=== PATIENT | female | born 1965 | race Caucasian/White ===

== ENCOUNTER 2017-03-06 17:38 | Emergency (ER) | payer OTHER ==
--- NOTE | ~2017-03-06 | US84 ---
[id number] [address] [id number] E MR#: [id number] #: [id number] NAME: ZENIA SOLOMON : 1965 SEX: F STUDY DATE/TIME: 03/06/2017 18:41 UNIT: SED ROOM: STUDY DESCRIPTION: US LE Veins Complete Tito Stdy Attending Physician: Aldo Abdi Ordering Physician: Aldo Abdi Primary Care Physician: Victor Manuel Irwin Aprn MEDICAL IMAGING REPORT This report is preliminary unless electronic signature is present. EXAM Bilateral lower extremity venous ultrasound HISTORY Lower extremity swelling for 1 week. FINDINGS Ultrasound examination of the bilateral lower extremity veins was performed from the groin to the calf with neumann-scale, color Doppler and spectral Doppler evaluation. Exam sensitivity is limited by large patient size. No DVT or SVT is identified. IMPRESSION 1. No DVT or SVT is identified. 2. Exam sensitivity is limited by patient body habitus. Dictated by... Ricco Choudhary M.D. THIS IS AN ELECTRONICALLY VERIFIED REPORT Ricco Choudhary M.D. at 03/06/2017 10:47 PM ELLIOTT/dai TD: 03/06/2017 21:18 JOB #: [id number] MEDICAL IMAGING REPORT Page 1 of 1
[~2017-03-06 17:38] MED LIST: ALBUTEROL17 GM; CENTRUM; CHLORTHALIDONE25 MG; COZAAR; DIFLUCAN; FLEXERIL; LORATADINE5 MG/5 M2; PREDNISONE10 MG/DOSE PO; PROVENTIL0.83 MG/ML; SPIRIVA RESPIMAT4 G1; SYNTHROID0.2 MG; VERAMYST10 GM
[2017-03-06 18:19] LABS: BASOPHIL# 0.1 X10e3 (0-0.3); BASOPHIL% 0.7 % (0-2.5); EOSINOPHIL# 0.3 X10e3 (0-0.7); EOSINOPHIL% 2.7 % (0.0-7.0); HEMATOCRIT 34.3 % (35.0-45.0); HEMOGLOBIN 11.4 gm/dL (12.0-16.0); LYMPHOCYTE# 2.3 X10e3 (1.0-3.5); LYMPHOCYTE% 23.3 % (17.0-45.0); MEAN CELL VOLUME 79.5 FL (83-96); MEAN CORPUSCULAR HEMOGLOBIN 26.6 PG (28-34); MEAN CORPUSCULAR HGB CONC 33.4 g/dL (30-36); MEAN PLATELET VOLUME 8.9 FL (6.5-11.5); MONOCYTE# 0.7 X10e3 (0-1.0); MONOCYTE% 6.9 % (3.0-12.0); NEUTROPHIL# 6.5 X10e3 (1.5-7.1); NEUTROPHIL% 66.4 % (40-75); PLATELET COUNT 289 X10e3 (140-420); RED BLOOD COUNT 4.31 X10e (3.90-5.30); RED CELL DISTRIBUTION WIDTH 14.7 % (11.0-15.5); WHITE BLOOD COUNT 9.8 X10e3 (4.0-10.5)
[2017-03-06 18:33] LABS: DIFF IND NO
[2017-03-06 18:50] LABS: POC - TROPONIN <0.05 ng/mL (<=0.05)
[2017-03-06 18:52] LABS: ALBUMIN SERUM 3.7 g/dL (3.5-5.0); BILIRUBIN,TOTAL 0.1 mg/dL (0.2-2.0); BUN/CREATININE RATIO 18.33; CALCIUM SERUM 9.1 mg/dL (8.4-10.2); CREATININE SERUM 1.2 mg/dL (0.6-1.4); GLOM FILT RATE Estimated 51.6 mL/min (>60)
[2017-03-06 18:56] LABS: POTASSIUM 2.8 mmol/L (3.5-5.1)
== END 2017-03-06 19:49 | disposition home or self-care (01) ==
LOC: SED 17:38
PROVIDERS: Nurse Practitioner
DX: M79.662 Pain in left lower leg (principal); M79.661 Pain in right lower leg; E87.6 Hypokalemia; J45.909 Unspecified asthma, uncomplicated; I10 Essential (primary) hypertension; J44.9 Chronic obstructive pulmonary disease, unspecified; Z98.890 Other specified postprocedural states; Z98.51 Tubal ligation status; Z88.1 Allergy status to other antibiotic agents
CPT/HCPCS: 36415; 80053; 82553; 83880; 84484; 85025; 85379; 93970; 96374; 99284; J1885

== ENCOUNTER 2017-06-25 01:36 | Inpatient (IN) | payer OTHER ==
[~2017-06-25] VITALS: Ht 160 cm; Wt 127.6 kg
--- NOTE | ~2017-06-25 | EKG ---
PATIENT: ZENIA SOLOMON UNIT #: [id number] Ventricular Rate: 81 BPM Atrial Rate: 81 BPM P-R Interval: 128 ms QRS Duration: 84 ms Q-T Interval: 382 ms QTC Calculation(Bezet): 443 ms P Tipton: 64 degrees Calculated R Tipton: 54 degrees Calculated T Tipton: 44 degrees Diagnosis Line: Normal sinus rhythm Diagnosis Line: Low voltage QRS Diagnosis Line: Otherwise normal ECG Diagnosis Line: When compared with ECG of 28-DEC-2016 23:28, Diagnosis Line: No significant change was found Diagnosis Line: Confirmed by DA PRINGLE MD ([id number]) on 06/25/2017 Diagnosis Line: 7:38:30 PM INTERPRETING MD: PINO WHITE
--- NOTE | ~2017-06-25 | CO ---
Unit #: [id number] #: [id number] Patient: ZENIA SOLOMON [id number] [facility]. [place] [id number] [facility]. [place], [place] [address] [id number] I MR#: [id number] NAME: ZENIA SOLOMON. ROOM: 574 Age: 52 Sex: F Admission Date: 06/25/2017 : 1965 Attending Physician: Fidencio Prescott M.D. Primary Care Physician: Victor Manuel Irwin Aprn Consultation Date: 06/25/2017 CONSULTATION REPORT CHIEF COMPLAINT Abdominal pain. HISTORY OF PRESENT ILLNESS This is a 52-year-old lady, who at about 6 hours ago around 12:30 in the morning, she started experiencing a sharp severe epigastric pain that radiated around her left chest and then straight through to her back. She has not had any prior episodes and denies any other associated symptoms such as nausea, vomiting, or change in bowel habits. She does have some chronic constipation. PAST MEDICAL HISTORY Significant for hypertension, COPD, hypothyroidism, and osteoarthritis. MEDICATIONS Please see med rec list for list of medications. ALLERGIES She has allergies to fenoxazoline. PAST SURGICAL HISTORY Significant for D and C and she has had some sort of a right complex wrist repair. She denies any alcohol use. She stopped smoking in 2012, but has a history of smoking 1-1/2 to 2 pack cigarettes per day. FAMILY HISTORY Significant for ovarian cancer and her mom just recently with that a week ago. She also has a strong family history of gallstones. REVIEW OF SYSTEMS Negative for weight loss or jaundice and is otherwise as above. PHYSICAL EXAMINATION VITAL SIGNS: Temperature is 97.8, heart rate 88, respiratory rate is 26, and blood pressure is 105/43. BMI is 51. GENERAL: She is in no acute distress. HEENT: Pupils are equal and reactive to light accommodation and her extraocular muscles are intact. NECK: Without masses or bruits. LUNGS: Shows good breath sounds bilaterally with some scattered wheezing. CARDIAC: Shows regular rate and rhythm without murmur. ABDOMEN: Morbidly obese. Soft, nondistended, and she has 1+ epigastric tenderness. EXTREMITIES: Without edema or cyanosis. Unit #: [id number] #: [id number] Patient: ZENIA SOLOMON NEUROLOGIC: She is alert and oriented. There are no focal deficits. DIAGNOSTIC STUDIES LABORATORY RESULTS: Amylase was 647. LFTs were okay. White blood count is 9000 and hemoglobin is 11. OVERALL IMPRESSION This lady has pancreatitis, likely biliary in nature. PLAN She is scheduled to get a right upper quadrant ultrasound this morning. We will also recheck her pancreatic enzymes as all her enzymes are trending downward and she has confirmed on ultrasound, we will probably tried to set up laparoscopic cholecystectomy tomorrow. I have discussed the possibility of having to convert to an open procedure as well as complications of bleeding, infection, bile leak, and injury to other structures. She understands those and wishes to proceed. Dictated by... Jose Juan Teixeira III, M.D. VCL/raquel TD: 06/25/2017 08:18 JOB #: [id number] CONSULTATION REPORT Page 1 of 1 X Jose Juan Teixeira III, MD X CONSULTATION REPORT
--- NOTE | ~2017-06-25 | DS ---
Unit #: [id number] #: [id number] Patient: ZENIA SOLOMON [id number] [facility]. [address] [address] [id number] I MR#: [id number] NAME: ZENIA SOLOMON ROOM: 574 Age: 52 Sex: F Admission Date: 06/25/2017 : 1965 Discharge Date: 06/29/2017 Attending Physician: Fidencio Prescott M.D. Primary Care Physician: Victor Manuel Irwin Aprn DISCHARGE SUMMARY ANTICIPATED DATE OF DISCHARGE 06/29/2017. DISCHARGE DIAGNOSES Gallstone pancreatitis, acute cholecystitis, hypothyroidism, hypertension, chronic liver disease, possible nonalcoholic steatohepatitis. HOSPITAL COURSE This is a 52-year-old female, who was initially admitted with the abdominal pain localized around the epigastric area and right upper quadrant associated with some nausea and vomiting. She was found to have the elevated amylase and lipase on admission as well as elevated liver enzyme, AST, and ALT. She was admitted with the impression of the pancreatitis and the CT scan of the abdomen showed gallstones. Abdominal ultrasound showed cholelithiasis with no evidence of acute cholecystitis. The patient underwent the laparoscopic cholecystectomy on 06/28/2017. Postoperatively, the patient is doing very well. She still been receiving her antibiotics such as Zosyn and Rocephin. 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 CONDITION AT DISCHARGE Stable. DISCHARGE MEDICATIONS Albuterol 90 mcg inhaler as needed, Spiriva 2 puffs daily, loratadine 10 mg daily, chlorthalidone 25 mg daily, losartan 50 mg daily, Singulair 10 mg daily, diclofenac sodium 75 mg b.i.d., Flexeril 10 mg daily, levothyroxine 175 mcg daily, Myrbetriq 25 mg p.o. daily, Windsor 10 mg/325 mg 1 to 2 tablets p.o. q.6h per surgery. FOLLOWUP Follow up with the surgery as an outpatient. Follow up with the primary care physician in 1 to 2 weeks. Dictated by... Sam Mercer/raquel TD: 06/30/2017 15:11 JOB #: [id number] Unit #: [id number] #: [id number] Patient: ZENIA SOLOMON DISCHARGE SUMMARY Page 1 of 1 X John Boland MD X DISCHARGE SUMMARY
--- NOTE | ~2017-06-25 | CT2 ---
[facility] A Service of [facility] RADIOLOGY TEXT RESULTS PATIENT: ZENIA SOLOMON LOCATION: Psychiatric 574-01 : [birth year] UNIT #: [id number] AGE: [address]: Fidencio Prescott MD SEX: F ORDER DR: [id number] [facility] [address] [facility]. [place], [place] [address] [id number] I MR#: [id number] #: [id number] NAME: ZENIA SOLOMON. : 1965 SEX: F STUDY DATE/TIME: 06/25/2017 04:56 UNIT: [facility] ROOM: 28945 STUDY DESCRIPTION: CT Abd and Pelv W Cont Attending Physician: Fidencio Prescott M.D. Ordering Physician: Jose Raul Horne M.D. Primary Care Physician: Victor Manuel Irwin Aprn MEDICAL IMAGING REPORT This report is preliminary unless electronic signature is present EXAM CT abdomen and pelvis 06/25 at 04:56 INDICATION Generalized mid abdominal pain worsening over the last day. History of pancreatitis. TECHNIQUE Axial images were obtained through the abdomen and pelvis following IV contrast administration. Multiplanar reformats were obtained. No comparison abdomen or pelvis CT. This CT examination was performed with one or more of the following radiation dose reduction techniques: automatic exposure control, adjustment of mA and/or kV according to patient size, and iterative reconstruction. FINDINGS ABDOMEN: Lung bases are clear. Gallbladder contains small stones but is otherwise normal. Solid organs are normal. No free fluid or adenopathy is seen. Unopacified GI tract is normal. PELVIS: Urinary bladder is normal. No free fluid is seen. Solid pelvic organs are normal. The appendix is normal, as is the remainder of the unopacified GI tract. There is degenerative disease in the lumbar spine and hips. IMPRESSION 1. No acute findings in the abdomen or pelvis 2. Normal unopacified GI tract, including the appendix. 3. Cholelithiasis. Dictated by... Alejandro Ingram Jr., M.D. [facility] A Service of [facility] RADIOLOGY TEXT RESULTS PATIENT: ZENIA SOLOMON LOCATION: Psychiatric 574-01 : [birth year] UNIT #: [id number] AGE: [address]: Fidencio Prescott MD SEX: F ORDER DR: THIS IS AN ELECTRONICALLY VERIFIED REPORT Alejandro Ingram Jr., M.D. at 06/25/2017 8:35 PM LEYLA/georgette TD: 06/25/2017 12:44 JOB #: [id number] MEDICAL IMAGING REPORT Page 1 of 1 COPY
--- NOTE | ~2017-06-25 | DS ---
Unit #: [id number] #: [id number] Patient: ZENIA SOLOMON [id number] [address] [place], [place] [address] [id number] I MR#: [id number] NAME: ZENIA SOLOMON. ROOM: 574 Age: 52 Sex: F Admission Date: 06/25/2017 : 1965 Discharge Date: Attending Physician: Fidnecio Prescott M.D. Primary Care Physician: Victor Manuel Irwin Aprn DISCHARGE SUMMARY FINAL DIAGNOSES 1. Abdominal pain secondary to acute ____,. 2. Biliary pancreatitis. 3. Acute cholecystitis with cholelithiasis. 4. Urinary tract infection. SECONDARY DIAGNOSES 1. Chronic obstructive pulmonary disease. 2. Hypertension. 3. Morbid obesity. 4. Liver steatosis. CONSULTS Dr. Keating, [facility]. PROCEDURES She had a lap-choly on 06/26/17. HOSPITAL COURSE Ixeji-xfbfd-jmkp-old female presented with right upper quadrant pain. She was seen and evaluated. She had elevated amylase and lipase and AST and ALT. She was seen by surgery. She had a lap-choly done. Pain persists but liver enzymes are trending downwards. She has been seen by surgery and cleared for discharge for outpatient pain management and followup in the office with [facility]. UTI. She did grow E-coli pansensitive. She was started on Rocephin while she was here. Will discharge her home with Ceftin 250 mg p.o. b.i.d. for the next 7 days. Abdominal pain. For abdominal pain, this was somewhat difficult to control; however, the plan will be to send her home with [place] [address] every 4. Patient will follow up her primary care provider tomorrow, 06/30/17. She does have an appointment at about 11 o'clock. She knows to keep that appointment at this time. MEDICATIONS Medications on discharge would include home medications: 1. Albuterol inhaler as needed. 2. Spiriva 2 puffs inhalational daily. 3. Loratadine 10 mg p.o. daily. 4. Chlorthalidone 25 mg p.o. daily. 5. Cozaar 50 mg p.o. daily. 6. Singulair 10 mg p.o. daily. Unit #: [id number] #: [id number] Patient: ZENIA SOLOMON 7. Multivitamin 1 tablet p.o. daily. 8. Diclofenac sodium 75 mg p.o. b.i.d. 9. Flexeril 10 mg p.o. b.i.d. as needed for muscle spasms. 10. Synthroid 175 mcg p.o. daily. 11. Myrbetriq 25 mg p.o. daily. 12. [place] 10/325 - 1 to 2 tablets p.o. q.4 hours p.r.n. 13. Ceftin 250 mg p.o. b.i.d. x7 days. DISCHARGE PLAN 1. She was scheduled to follow up with her PCP in the next 3 to 5 days. 2. Scheduled to follow up with [facility] in about a week. She is to call the office at [phone] for outpatient followup. NOTE: Time spent coordinating discharge was about 23 minutes. Dictated by... Sam Meléndez/brooklynn TD: 06/29/2017 10:32 JOB #: [id number] DISCHARGE SUMMARY Page 1 of 1 X Mehran Andino MD X DISCHARGE SUMMARY
--- NOTE | ~2017-06-25 | US67 ---
[facility] A Service of [facility] RADIOLOGY TEXT RESULTS PATIENT: ZENIA SOLOMON LOCATION: [facility] [address] : [birth year] UNIT #: [id number] AGE: [address]: Fidencio Prescott MD SEX: F ORDER DR: [id number] [facility] [address] [facility]. [place], [place] [address] [id number] I MR#: [id number] #: [id number] NAME: ZENIA SOLOMON. : 1965 SEX: F STUDY DATE/TIME: 06/25/2017 8:57 UNIT: [facility] ROOM: 95416 STUDY DESCRIPTION: US Gallbladder Attending Physician: Fidencio Prescott M.D. Ordering Physician: Miracle Sterling M.D. Primary Care Physician: Victor Manuel Irwin Aprn MEDICAL IMAGING REPORT This report is preliminary unless electronic signature is present EXAM Right upper quadrant abdominal ultrasound. INDICATIONS Right upper quadrant abdominal pain since 06/25/2017 since this morning. PROCEDURE Wasserman-scale and Doppler imaging right upper quadrant of the abdomen. COMPARISON CT from 06/25/2017. FINDINGS Visualized portions of the pancreas are unremarkable. Common duct measures 5 mm. Liver shows increased echotexture. Liver measures 20.4 cm. No liver mass seen on submitted images. Right kidney measures 10.2 cm and is normal. Cholelithiasis with several small stones in the gallbladder. No gallbladder wall thickening or pericholecystic fluid. IMPRESSION 1. Cholelithiasis with no sonographic evidence for acute cholecystitis. 2. Hepatomegaly with steatosis. Dictated by... Franky Navarrete M.D. THIS IS AN ELECTRONICALLY VERIFIED REPORT Franky Navarrete M.D. at 06/26/2017 7:02 AM EED/tatiana TD: 06/25/2017 14:48 JOB #: [id number] [facility] A Service of [facility] RADIOLOGY TEXT RESULTS PATIENT: ZENIA SOLOMON LOCATION: [facility] 574 : [birth year] UNIT #: [id number] AGE: [address]: Fidencio Prescott MD SEX: F ORDER DR: MEDICAL IMAGING REPORT Page 1 of 1 COPY
--- NOTE | ~2017-06-25 | BMI ---
[facility] Nutrition Therapy DATE: 06/26/17 Patient: ZENIA SOLOMON Physician: ADY Address: [address] [place] [address] Room/Bed: [address] [place] [address], Zip: [place] [address] Admit Date: 06/25/17 Date of : [birth year] Height: 5 3 Weight: 279 126.6 HIGH BMI NOTE: DX: 52 Y.O. FEMALE ADMITTED FOR CHEST PAIN ANTHROPOMETRICS: 5'3", WT: 279# (127 KG), BMI: 49.4 DIET: NPO RECOMMENDATIONS: 1. ONCE MEDICALLY FEASIBLE, ADVANCE DIET INDICATED TO HEALTHY HEART TO PROMOTE GRADUAL WEIGHT LOSS TOWARDS HEALTHY BMI (19.0-25.0) OR +/-10%IBW RD WILL F/U PER PROTOCOL Respectfully, LAKEISHA HOUSE MS, RD, LD Food and Nutrition[facility] Services [facility] cc: client file
--- NOTE | ~2017-06-25 | HP ---
Unit #: [id number] #: [id number] Patient: ZENIA SOLOMON [id number] [address] [address] [id number] I MR#: [id number] NAME: ZENIA SOLOMON ROOM: 46910 Age: 52 Sex: F Admission Date: 06/25/2017 : 1965 Attending Physician: Miracle Sterling M.D. Primary Care Physician: Victor Manuel Irwin Aprn HISTORY AND PHYSICAL CHIEF COMPLAINT Gallstone pancreatitis. HISTORY This robbie 52-year-old female with hypertension, hypothyroidism, COPD, is admitted for gallstone pancreatitis. Patient states that she was well until about 12:30 this morning when she developed severe epigastric/chest pain radiating to her right abdomen and right back between her shoulder blades. She was brought to this emergency department early this morning with stable vital signs. Currently is being bolused with a liter of saline as her amylase and lipase are significantly elevated. CT scan of the abdomen and pelvis show gallstones. PAST MEDICAL HISTORY 1. Hypertension. 2. Hypothyroidism. 3. COPD/asthma. 4. DJD. 5. D and C x1. 6. Right shoulder surgery. ALLERGIES Theophylline. HOME MEDICATIONS Possibly chlorthalidone and Cozaar, Claritin, Proventil, Spiriva, Synthroid, multivitamins. FAMILY HISTORY Gallbladder disease and malignancy. SOCIAL HISTORY The patient is living with a friend. She stopped smoking 2012, does not drink alcohol or use illicit drugs. REVIEW OF SYSTEMS Notable for chest/abdominal pain, hypertension, hypothyroidism, COPD, asthma, DJD, above mentioned surgeries. All other systems were reviewed and otherwise negative. PHYSICAL EXAMINATION GENERAL: Robbie, morbidly obese 52-year-old female, currently in no acute distress. Unit #: [id number] #: [id number] Patient: ZENIA SOLOMON VITAL SIGNS: Temperature 97.8, pulse 88, respirations 26, blood pressure 105/43. O2 saturation is 98% on room air. HEENT EXAMINATION: Eyes PERRLA. Extraocular muscles are intact. Pharynx - dry mucosal membranes with poor dentition. NECK: Supple without adenopathy or thyromegaly. CHEST: Clear. CARDIAC: Normal S1 and S2 without murmur. ABDOMEN: Bowel sounds are present. Mildly tender in the epigastric region. No hepatosplenomegaly or masses. EXTREMITIES: Without C, C or E. Pedal pulses are present. NEUROLOGIC EXAM: Patient is awake, alert, oriented. Cranial nerves are intact. Equal strength throughout. DIAGNOSTIC STUDIES LABORATORY: Hematocrit 34.5, normal white count, platelet count. MCV is low at 79.2. Negative cardiac enzymes. Normal coags. SMA-12 - BUN 26, potassium 3.1, AST 74, ALT 56, amylase 647, lipase 1735. Urinalysis unremarkable. IMAGING: CT scan of the abdomen and pelvis - no acute disease. Gallstones noted. CARDIOVASCULAR: EKG - normal sinus rhythm, rate 80. Normal appearing. ASSESSMENT 1. Gallstone pancreatitis. 2. Hypokalemia. 3. Essential hypertension. 4. COPD/asthma. 5. DJD. 6. Morbid obesity. PLANS 1. Aggressive hydration. 2. Check gallbladder ultrasound, consult [facility]. 3. DVT and gastritis prophylaxis. 4. Replace potassium, check magnesium. 5. I's and O's daily. 6. Pain medication. Dictated by Sam Chahal/df TD: 06/25/2017 06:56 JOB #: [id number] Unit #: [id number] #: [id number] Patient: ZENIA SOLOMON HISTORY AND PHYSICAL Page 1 of 1 X Miracle Sterling MD HISTORY AND PHYSICAL
--- NOTE | ~2017-06-25 | OR ---
Unit #: [id number] #: [id number] Patient: ZENIA SOLOMON [id number] [facility]. [address] [place], [place] [address] [id number] I MR#: [id number] NAME: ZENIA SOLOMON ROOM: 574 Date of Procedure: 06/26/2017 Admission Date: 06/25/2017 Surgeon: Dashawn Barrow Jr., M.D. : 1965 Attending Physician: Fidencio Prescott M.D. Primary Care Physician: Victor Manuel Irwin Aprn OPERATIVE REPORT INDICATIONS FOR PROCEDURE The patient is a 52-year-old obese white female, who presented with complaining of severe chest pain and upper abdominal pain. She was worked up and noted to have evidence of probable biliary pancreatitis. There were no pancreatitis changes though on the CAT scan. Amylase and lipase were significantly elevated since her admission. Her amylase and lipase now down to near normal and she is brought to the operating room for laparoscopic cholecystectomy since her ultrasound revealed evidence of gallstones. She understands the procedure including the risk of bleeding, intraabdominal organ injury, common duct injury, and biliary leak, and consents. PREOPERATIVE DIAGNOSES Biliary pancreatitis with cholecystitis and cholelithiasis. POSTOPERATIVE DIAGNOSES Biliary pancreatitis with cholecystitis and cholelithiasis, noting tiny stones within the gallbladder as well as a very small 1 mm cystic duct, normal-appearing common duct, and a large globular liver. ANESTHESIA General with endotracheal intubation and 0.5% Marcaine with epinephrine locally. PROCEDURE PERFORMED Laparoscopic cholecystectomy. DESCRIPTION OF PROCEDURE The patient was positioned in supine position. After being anesthetized and intubated, she was prepped and draped in routine fashion for laparoscopic cholecystectomy. A small supraumbilical incision was made approximately a centimeter in length. This was carried down to the fascia. The fascia was lifted with 2 Naila clamps and Veress needle introduced into the abdomen. The abdomen was then inflated with CO2 gas. A 5-mm port was introduced in the abdomen followed by the camera. There was no evidence of any injury related to introduction of the port of the Veress needle. Brief intra-abdominal exploration was carried out. The patient was noted to have evidence of acutely inflamed appearing gallbladder as well as a large globular liver. Two 5-mm ports were placed laterally and 11-mm port just to the right of the upper midline. The gallbladder was lifted. Dissection was carried out on the triangle of Calot, cystic duct was identified only approximately 1 mm in diameter was hemoclipped x4 and divided approximately a 1.5 cm or 2 cm from its Unit #: [id number] #: [id number] Patient: ZENIA SOLOMON J junction with the common duct. The common duct appeared normal in size. Cystic artery was identified, hemoclipped x3, and divided. The gallbladder was then removed from its bed with the hook cautery using a current of 20. There was a small amount of bleeding and the current for the Bovie was then increased to 30. After the gallbladder was removed from its bed, it was placed in EndoCatch bag and brought out through the larger port site along with the port and the bag. It was sent to pathology and the port was replaced. Subhepatic space irrigated. Some tiny stones that were of inadvertently spilled from the gallbladder with manipulation were then removed with a large suction tip and bile was also removed with a large suction tip. Using a 4 x 4 sponges packed in intraabdominally, the area was cleared and there was no evidence of any bile stones or blood at the end of using the sponge technique. After sponges removed, sponge count was correct x3. The bed of the gallbladder was checked. There was no evidence of any bleeding from the bed, it appeared hemostatic. Clips on cystic duct and cystic artery were intact with no evidence of any leak or bleeding. At this point, the fascia in the larger port site was approximated with the neoClose technique and the ports removed. CO2 expressed from the abdomen. There was no evidence of any bleeding from the port sites. The port sites were injected with 0.5% Marcaine with epinephrine locally and irrigated and after hemostasis again achieved with the Bovie cautery. Skin edges on all the port sites were approximated with stainless-steel skin clips and skin stapling device. Sterile dressings were applied externally. Estimated blood loss for the entire procedure less than 75 mL. The patient received less than 2000 mL crystalloid solution during the procedure. Sponges and instruments counts were correct x3. No drains used. No complications. The patient was taken to the recovery room with stable vital signs in satisfactory condition. Dictated by... Dashawn Barrow Jr., M.D. JMB/raquel TD: 06/26/2017 16:45 JOB #: [id number] OPERATIVE REPORT Page 1 of 1 X Dashawn Barrow MD PROCEDURE OPERATIVE NOTE
[2017-06-25 02:53] LABS: POC - CKMB <1.0 ng/mL (0.0-7.9); POC - TROPONIN <0.05 ng/mL (<=0.05)
[2017-06-25 03:29] LABS: BASOPHIL% 0.3 % (0-2.5); EOSINOPHIL# 0.2 X10e3 (0-0.7); EOSINOPHIL% 1.9 % (0.0-7.0); HEMATOCRIT 34.5 % (35.0-45.0); HEMOGLOBIN 11.5 gm/dL (12.0-16.0); LYMPHOCYTE# 1.6 X10e3 (1.0-3.5); LYMPHOCYTE% 17.4 % (17.0-45.0); MEAN CELL VOLUME 79.2 FL (83-96); MEAN CORPUSCULAR HEMOGLOBIN 26.3 PG (28-34); MEAN CORPUSCULAR HGB CONC 33.2 g/dL (30-36); MEAN PLATELET VOLUME 9.7 FL (6.5-11.5); MONOCYTE# 0.5 X10e3 (0-1.0); MONOCYTE% 5.6 % (3.0-12.0); NEUTROPHIL% 74.8 % (40-75); PLATELET COUNT 245 X10e3 (140-420); RED BLOOD COUNT 4.36 X10e (3.90-5.30); RED CELL DISTRIBUTION WIDTH 14.8 % (11.0-15.5); WHITE BLOOD COUNT 9.3 X10e3 (4.0-10.5)
[2017-06-25 03:31] LABS: DIFF IND NO
[2017-06-25 03:38] LABS: URINE SOURCE CLEAN CATCH
[2017-06-25 03:43] LABS: PARTIAL THROMBOPLASTIN TIME 25.7 SECONDS (23.5-31.3); PROTHROMBIN TIME (PATIENT) 10.5 SECONDS (10.0-11.7)
[2017-06-25 03:43] LABS: URINE APPEARANCE CLEAR; URINE BILIRUBIN NEG (NEG); URINE BLOOD NEG (NEG); URINE COLOR YELLOW; URINE GLUCOSE NEG (NEG); URINE KETONE NEG (NEG); URINE LEUKOCYTE ESTERASE TRACE (NEG); URINE NITRATE NEG (NEG); URINE PROTEIN NEG (NEG); URINE SPECIFIC GRAVITY 1.011 (1.003-1.035)
[2017-06-25 03:44] LABS: CULTURE INDICATED? YES; URBCS1 AUWI 0-2 /[HPF] (0-2); URINE BACTERIA AUWI 1+ (NEGATIVE); URINE SQUAMOUS EPITHELIAL CELL OCC /[HPF]
[2017-06-25 04:10] LABS: ALBUMIN SERUM 3.5 g/dL (3.5-5.0); BILIRUBIN, DIRECT 0.1 mg/dL (0.0-0.2); BILIRUBIN,INDIRECT 0.3 mg/dL (0.0-0.9); BILIRUBIN,TOTAL 0.4 mg/dL (0.2-2.0); BUN/CREATININE RATIO 23.63; CALCIUM SERUM 8.8 mg/dL (8.4-10.2); CREATININE SERUM 1.1 mg/dL (0.6-1.4); GLOM FILT RATE Estimated 57.3 mL/min (>60); POTASSIUM 3.1 mmol/L (3.5-5.1); PROTEIN TOTAL SERUM 6.7 g/dL (6.0-8.3)
[2017-06-25] MEDS ORDERED: SPIRIVA18 MCG (10:03)
[2017-06-25] MEDS ORDERED: VOLTAREN75 MG PO (10:03)
[2017-06-25] MEDS ORDERED: ALLERGY10 M1 PO (10:03)
[2017-06-25] MEDS ORDERED: PATIENT'S PHARMACY (10:03)
[2017-06-25] MEDS ORDERED: FLEXERIL10 MG PO (10:03)
[2017-06-25] MEDS ORDERED: COZAAR PO (10:03)
[2017-06-25] MEDS ORDERED: MULTIVITAMINS1 EAC3 PO (10:04)
[2017-06-25] MEDS ORDERED: SYNTHROID175 MCG PO (10:04)
[2017-06-25] MEDS ORDERED: CHLORTHALIDONE25 MG PO (10:04)
[2017-06-25] MEDS ORDERED: MYRBETRIQ25 MG PO (10:04)
[2017-06-25] MEDS ORDERED: SINGULAIR PO (10:04)
[2017-06-25 14:21] LABS: HEMATOCRIT 34.3 % (35.0-45.0); HEMOGLOBIN 11.2 gm/dL (12.0-16.0); MEAN CELL VOLUME 79.9 FL (83-96); MEAN CORPUSCULAR HEMOGLOBIN 26.1 PG (28-34); MEAN CORPUSCULAR HGB CONC 32.7 g/dL (30-36); MEAN PLATELET VOLUME 9.2 FL (6.5-11.5); RED BLOOD COUNT 4.3 X10e (3.90-5.30); RED CELL DISTRIBUTION WIDTH 15.2 % (11.0-15.5); WHITE BLOOD COUNT 5.8 X10e3 (4.0-10.5)
[2017-06-25 14:29] LABS: POC - CKMB <1.0 ng/mL (0.0-7.9); POC - TROPONIN <0.05 ng/mL (<=0.05)
[2017-06-25 14:49] LABS: BUN/CREATININE RATIO 15.45; CALCIUM SERUM 8.2 mg/dL (8.4-10.2); CREATININE SERUM 1.1 mg/dL (0.6-1.4); GLOM FILT RATE Estimated 57.3 mL/min (>60); MAGNESIUM 1.8 mg/dL (1.6-3.0); POTASSIUM 3.9 mmol/L (3.5-5.1)
[2017-06-26] MEDS ORDERED: ALBUTEROL MININEB INH (00:55)
[2017-06-26 07:03] LABS: BASOPHIL% 0.8 % (0-2.5); DIFF IND NO; EOSINOPHIL# 0.3 X10e3 (0-0.7); EOSINOPHIL% 6.1 % (0.0-7.0); HEMATOCRIT 33.2 % (35.0-45.0); HEMOGLOBIN 10.9 gm/dL (12.0-16.0); LYMPHOCYTE# 1.2 X10e3 (1.0-3.5); LYMPHOCYTE% 24.3 % (17.0-45.0); MEAN CELL VOLUME 79.8 FL (83-96); MEAN CORPUSCULAR HEMOGLOBIN 26.2 PG (28-34); MEAN CORPUSCULAR HGB CONC 32.9 g/dL (30-36); MEAN PLATELET VOLUME 8.9 FL (6.5-11.5); MONOCYTE# 0.4 X10e3 (0-1.0); MONOCYTE% 7.4 % (3.0-12.0); NEUTROPHIL# 3.2 X10e3 (1.5-7.1); NEUTROPHIL% 61.4 % (40-75); PLATELET COUNT 214 X10e3 (140-420); RED BLOOD COUNT 4.16 X10e (3.90-5.30); RED CELL DISTRIBUTION WIDTH 15.3 % (11.0-15.5); WHITE BLOOD COUNT 5.1 X10e3 (4.0-10.5)
[2017-06-26 07:16] LABS: PARTIAL THROMBOPLASTIN TIME 26.5 SECONDS (23.5-31.3)
[2017-06-26 07:44] LABS: ALBUMIN SERUM 3.2 g/dL (3.5-5.0); BILIRUBIN,TOTAL 0.6 mg/dL (0.2-2.0); CALCIUM SERUM 8.6 mg/dL (8.4-10.2); CREATININE SERUM 0.9 mg/dL (0.6-1.4); MAGNESIUM 1.7 mg/dL (1.6-3.0); POTASSIUM 3.9 mmol/L (3.5-5.1); PROTEIN TOTAL SERUM 6.1 g/dL (6.0-8.3)
[2017-06-27 00:45] LABS: HEMATOCRIT 33.8 % (35.0-45.0); HEMOGLOBIN 11.1 gm/dL (12.0-16.0)
[2017-06-27 06:22] LABS: HEMATOCRIT 31.3 % (35.0-45.0); HEMOGLOBIN 10.3 gm/dL (12.0-16.0); MEAN CELL VOLUME 79.4 FL (83-96); MEAN CORPUSCULAR HEMOGLOBIN 26.2 PG (28-34); MEAN CORPUSCULAR HGB CONC 32.9 g/dL (30-36); MEAN PLATELET VOLUME 9.5 FL (6.5-11.5); RED BLOOD COUNT 3.93 X10e (3.90-5.30); RED CELL DISTRIBUTION WIDTH 15.2 % (11.0-15.5)
[2017-06-27 06:23] LABS: WHITE BLOOD COUNT 10.6 X10e3 (4.0-10.5)
[2017-06-27 06:53] LABS: ALBUMIN SERUM 3.1 g/dL (3.5-5.0); BILIRUBIN,TOTAL 0.4 mg/dL (0.2-2.0); CREATININE SERUM 0.9 mg/dL (0.6-1.4); POTASSIUM 4.3 mmol/L (3.5-5.1); PROTEIN TOTAL SERUM 5.8 g/dL (6.0-8.3)
[2017-06-28 06:26] LABS: HEMATOCRIT 30.1 % (35.0-45.0); HEMOGLOBIN 10.1 gm/dL (12.0-16.0); MEAN CELL VOLUME 79.7 FL (83-96); MEAN CORPUSCULAR HEMOGLOBIN 26.7 PG (28-34); MEAN CORPUSCULAR HGB CONC 33.4 g/dL (30-36); MEAN PLATELET VOLUME 9.6 FL (6.5-11.5); RED BLOOD COUNT 3.77 X10e (3.90-5.30); RED CELL DISTRIBUTION WIDTH 15.1 % (11.0-15.5); WHITE BLOOD COUNT 7.4 X10e3 (4.0-10.5)
[2017-06-28 07:09] LABS: ALBUMIN SERUM 3.2 g/dL (3.5-5.0); BILIRUBIN,TOTAL 0.4 mg/dL (0.2-2.0); BUN/CREATININE RATIO 14.16; CALCIUM SERUM 8.6 mg/dL (8.4-10.2); CREATININE SERUM 1.2 mg/dL (0.6-1.4); GLOM FILT RATE Estimated 51.6 mL/min (>60); POTASSIUM 3.9 mmol/L (3.5-5.1); PROTEIN TOTAL SERUM 6.1 g/dL (6.0-8.3)
[2017-06-29 05:55] LABS: MAGNESIUM 2.2 mg/dL (1.6-3.0); POTASSIUM 3.9 mmol/L (3.5-5.1)
[2017-06-29] MEDS ORDERED: CEFTIN PO (09:12)
[2017-06-29] MEDS ORDERED: HYDROCODON-ACE1 EAC5 PO (09:13)
[2017-06-30 08:04] LABS: HA AB IGM (HEPPAN) Nonreactive (()); HB CORE AB IGM (HEPPAN) Nonreactive (Nonreactive); HB S AG (HEPPAN) Nonreactive (Nonreactive); HEP C AB (HEPPAN) Nonreactive (Nonreactive); HEP C AB SIGNAL TO CUTOFF 0.01 ratio (<1.00)
== END 2017-06-29 12:32 | disposition home or self-care (01) | DRG 417 ==
LOC: CED 01:36 → C5C 05:40 → CEDOF 05:40 → CED 05:55 → CEDOF 07:17 → C5C 17:32
PROVIDERS: Emergency Medicine; Internal Medicine; Internal Medicine Endocrinology, Diabetes & Metabolism; Surgery
PROC: 0FT44ZZ Resection of Gallbladder, Percutaneous Endoscopic Approach (ICD-10-PCS; principal; 2017-06-26 14:00)
DX: K80.10 Calculus of gallbladder with chronic cholecystitis without obstruction (principal); K85.10 Biliary acute pancreatitis without necrosis or infection; K76.0 Fatty (change of) liver, not elsewhere classified; N39.0 Urinary tract infection, site not specified; Z68.42 Body mass index [BMI] 45.0-49.9, adult; E66.01 Morbid (severe) obesity due to excess calories; I10 Essential (primary) hypertension; E03.9 Hypothyroidism, unspecified; J44.9 Chronic obstructive pulmonary disease, unspecified; J45.909 Unspecified asthma, uncomplicated; M19.90 Unspecified osteoarthritis, unspecified site; Z87.891 Personal history of nicotine dependence; E87.6 Hypokalemia; B96.20 Unspecified Escherichia coli [E. coli] as the cause of diseases classified elsewhere; R74.0 Nonspecific elevation of levels of transaminase and lactic acid dehydrogenase [LDH]
CPT/HCPCS: 36415; 74177; 76705; 80048; 80053; 80074; 80076; 81003; 82150; 82553; 82947; 83690; 83735; 84132; 84484; 85014; 85018; 85025; 85027; 85379; 85610; 85730; 87086; 87088; 87186; 88304; 93005; 94640; 94664; 94760; 96360; 99285; J0330; J0690; J0696; J1100; J1650; J1885; J2250; J2405; J2543; J2710; J3010; J3475; Q9967